=== PATIENT | female | born 1995 | race Caucasian/White ===

== ENCOUNTER 2018-03-12 18:52 | Emergency (ER) | payer OTHER ==
[~2018-03-12] VITALS: Ht 160 cm; Wt 61.2 kg
== END 2018-03-12 19:22 | disposition home or self-care (01) ==
LOC: ER 18:52
DX: T78.49XA Other allergy, initial encounter (principal); R21 Rash and other nonspecific skin eruption

== ENCOUNTER → 2018-03-24 | Emergency (ER) | payer OTHER ==
[~2018-03-24] VITALS: Ht 160 cm; Wt 59.0 kg
== END | disposition home or self-care (01) ==
LOC: ER 22:00
DX: R23.8 Other skin changes (principal)

== ENCOUNTER 2018-04-28 18:57 | Emergency (ER) | payer OTHER ==
[~2018-04-28] VITALS: Ht 160 cm; Wt 60.3 kg
== END 2018-04-28 21:27 | disposition home or self-care (01) ==
LOC: ER 18:57
DX: J09.X2 Influenza due to identified novel influenza A virus with other respiratory manifestations (principal); B34.9 Viral infection, unspecified

== ENCOUNTER 2018-09-17 19:48 | Emergency (ER) | payer OTHER ==
[~2018-09-17] VITALS: Ht 160 cm; Wt 59.9 kg
== END 2018-09-18 00:22 | disposition home or self-care (01) ==
LOC: ER 19:48
DX: B34.9 Viral infection, unspecified (principal)

== ENCOUNTER → 2020-10-23 | Emergency (ER) | payer OTHER ==
[~2020-10-23] VITALS: Ht 160 cm; Wt 56.7 kg
[~2020-10-23] MED LIST: MEDROL8 MG PO
== END | disposition home or self-care (01) ==
LOC: ER 22:27
DX: R42 Dizziness and giddiness (principal)